=== PATIENT | female | born 1990 | race Caucasian/White ===

== ENCOUNTER 2020-12-01 12:46 | Emergency (ER) | payer BC ==
[~2020-12-01 12:46] MED LIST: COLACE 100MG C100 MG PO
[2020-12-01 14:39] LABS: HEMOGLOBIN 12.8 gm/dl (12.3-15.3); RED BLOOD COUNT 4.24 M/UL (4.00-5.10)
[2020-12-01 14:56] LABS: BUN/CREATININE RATIO 9 (0-10)
[2020-12-01] MEDS ORDERED: CYCLOBENZAPRINE10 MG PO (20:26)
[2020-12-01] MEDS ORDERED: MACROBID 100 M100 M1 PO (20:26)
[2020-12-01] MEDS ORDERED: ZOFRAN ODT 4 MG4 MG PO (20:29)
== END 2020-12-01 20:15 | disposition home or self-care (01) ==
LOC: ER1 12:46
PROVIDERS: Physician Assistant Medical
DX: G89.29 Other chronic pain (principal); M54.2 Cervicalgia; R51.9 Headache, unspecified; R82.81 Pyuria; Z88.1 Allergy status to other antibiotic agents
CPT/HCPCS: 80053; 81001; 84439; 84443; 85025; 87086; 96374; 96375; 99284; J1100; J1200; J1885; J2765

== ENCOUNTER 2021-07-25 08:46 | Emergency (ER) | payer BC ==
[~2021-07-25 08:46] MED LIST changes: +CYCLOBENZAPRINE10 MG PO; +MACROBID 100 M100 M1 PO; +ZOFRAN ODT 4 MG4 MG PO
[2021-07-25 09:43] LABS: HEMOGLOBIN 14.2 gm/dl (12.3-15.3); RED BLOOD COUNT 4.77 M/UL (4.00-5.10); WHITE BLOOD COUNT 6.5 K/UL (4.5-11.0)
[2021-07-25 10:03] LABS: BUN/CREATININE RATIO 11 (0-10)
[2021-07-25] MEDS ORDERED: CYCLOBENZAPRINE10 MG PO (10:46)
[2021-07-25] MEDS ORDERED: IBUPROFEN600 MG PO (10:46)
== END 2021-07-25 11:23 | disposition home or self-care (01) ==
LOC: ER1 08:46
PROVIDERS: Nurse Practitioner
DX: M62.838 Other muscle spasm (principal); M54.2 Cervicalgia; Z88.2 Allergy status to sulfonamides
CPT/HCPCS: 71045; 72125; 80053; 81001; 82550; 82553; 84484; 85025; 93005; 99285